=== PATIENT | female | born 1995 | race Caucasian/White ===

== ENCOUNTER 2022-05-08 08:47 | Outpatient (CLI) | payer OTHER | END 2022-05-08 08:48 | disposition home or self-care (01) | LOC: BICULT 08:47 | PROVIDERS: ATTEND Obstetrics & Gynecology | DX: R92.8 Other abnormal and inconclusive findings on diagnostic imaging of breast (principal) ==

== ENCOUNTER 2023-05-19 15:17 | Emergency (ER) | payer OTHER ==
[2023-05-19] MEDS ORDERED: Lorazepam 1 MG TAB ONE (16:02)
== END 2023-05-19 16:35 | disposition home or self-care (01) ==
LOC: ERS 15:17
DX: F41.1 Generalized anxiety disorder (principal); F43.0 Acute stress reaction
CPT/HCPCS: 99283